=== PATIENT | female | born 1990 | race Caucasian/White ===

== ENCOUNTER 2016-10-08 22:00 | Emergency (ER) | payer BC ==
[2016-10-08 22:10] VITALS: TEMP 98.1
--- NOTE | 2016-10-08 22:14 | EDPHY ---
H & P Stated Complaint: rash to chin, throat "feels tight, swollen," l side facial pain HPI/ROS: HPI CHIEF COMPLAINT: Possible allergic reaction HISTORY OF PRESENT ILLNESS: This patient 25-year-old female, significant past medical history for seasonal allergies, asthma and migraines, she presents emergency room with sudden onset pain in her left side of her posterior jaw all and upper jaw around her teeth, also states that she felt like she was having trouble swallowing felt itching of her chin. She thought she may be having allergic reaction. She just moved here from [facility]. She is in a new apartment for 2 days. She denies any new medications or recent exposures. She does have a new environment. She decided come to the emergency room as she thought she may be having allergic reaction. Patient denies fever, chest pain or shortness of breath. No pleuritic pain. Additionally she felt that the inferior aspect of her chin was itching and she noticed a rash. Past Medical History: Asthma, migraines, seasonal allergies Past Surgical History: No recent surgery Social History: Just moved here to [place] from [facility] for her significant other's graduate school Family History: Noncontributory ROS REVIEW OF SYSTEMS: A comprehensive 10 point review of systems is otherwise negative aside from elements mentioned in the history of present illness. Exam Constitutional appears well nontoxic triage nursing summary reviewed, vital signs reviewed, awake/alert. Eyes normal conjunctivae and sclera, EOMI, PERRLA. HENT oropharynx: Uvula midline, no significant swelling, no petechiae in the mouth no signs of Ulises's, no gumline abscess, dentition all appears normal their feelings in her posterior molars on both sides lower aspect, but I do not appreciate signs of infection, moist mucus membranes, no epistaxis, neck supple / no meningismus, no raccoon eyes. Neck exam: No lymphadenopathy, no significant tenderness, no bruit. Underneath the chin there is an area small amount of petechiae. Respiratory clear to auscultation bilaterally, normal breath sounds, no respiratory distress, no wheezing. Cardiovascular rate normal, regular rhythm, no murmur, no edema, distal pulses normal. Gastrointestinal soft, non-tender, no rebound, no guarding, normal bowel sounds, no distension, no pulsatile mass. Genitourinary no CVA tenderness. Musculoskeletal no midline vertebral tenderness, full range of motion, no calf swelling, no tenderness of extremities, no meningismus, good pulses, neurovascularly intact. Skin small amount of petechiae underneath the chin, there is no signs of Ulises 's on exam pink, warm, & dry, no rash, skin atraumatic. Neurologic awake, alert and oriented x 3, AAOx3, moves all 4 extremities equally, motor intact, sensory intact, CN II-XII intact, normal cerebellar, normal vision, normal speech. Psychiatric normal mood/affect. Heme/Lymph/Immune no lymphadenopathy. Differential Diagnosis: Includes but is not limited to in a particular order allergic reaction, dental infection, vasculitis, pulpitis, zoster Medical Decision Making: Plan for this patient treat for an acute allergic reaction prednisone p.o. Pepcid p.o. and Benadryl p.o.. Re-evaluation: 2347: I did re-evaluate the patient at this time. She is resting comfortably she tells me that she feels much better after prednisone Pepcid and Benadryl. She denies any worsening swallowing, shortness of breath, or any further signs of allergic reaction. She is requesting go home. I will place her on prednisone Benadryl and Zantac for the next few days. She understands return precautions. Source: Patient - Personal History LMP (Females 10-55): Now Current Tetanus/Diphtheria Vaccine: Yes - Medical/Surgical History Hx Asthma: No Hx Chronic Respiratory Disease: No Hx Diabetes: No Hx Cardiac Disease: No Hx Renal Disease: No Hx Cirrhosis: No Hx Alcoholism: No Hx HIV/AIDS: No Hx Splenectomy or Spleen Trauma: No Other PMH: Asthma, chronic bronchitis, migraines - Social History Smoking Status: Never smoked Constitutional: Initial Vital Signs Temperature (C) 36.7 C 10/08/16 22:07 Heart Rate 100 10/08/16 22:07 Respiratory Rate 16 10/08/16 22:07 Blood Pressure 99/68 L 10/08/16 22:07 O2 Sat (%) 97 10/08/16 22:07 O2 Delivery Mode Room Air Allergies/Adverse Reactions: [place] And Derivatives [citrus] Allergy (Verified 10/08/16 22:10) Home Medications: Medication Instructions Recorded Fluticasone Hfa 110 Mcg [Flovent 1 puffs IH BID 10/08/16 110 MCG Hfa MDI (*)] Fluticasone Nasal [Flonase Nasal 1 sprays NASAL DAILY 10/08/16 [place] (RX)] Loratadine [Claritin 10 mg] 10 mg PO DAILY 10/08/16 Omeprazole [Prilosec 20 mg] 20 mg PO DAILY 10/08/16 Ranitidine HCl [Zantac] 150 mg PO DAILY #3 tablet 10/08/16 Topiramate 10/08/16 diphenhydrAMINE [Benadryl 25 MG 25 mg PO BID #6 tab 10/08/16 (*)] predniSONE 60 mg PO DAILY #9 tab 10/08/16 Medical Decision Making - Data Points Medications Given: Discontinued Medications Diphenhydramine HCl (Benadryl) 25 mg PO EDNOW ONE Stop: 10/08/16 22:22 Last Admin: 10/08/16 22:26 Dose: 25 mg Famotidine (Pepcid) 20 mg PO EDNOW ONE Stop: 10/08/16 22:22 Last Admin: 10/08/16 22:25 Dose: 20 mg Prednisone (Prednisone) 60 mg PO EDNOW ONE Stop: 10/08/16 22:22 Last Admin: 10/08/16 22:26 Dose: 60 mg Departure - Departure Disposition: Home, Routine, Self-Care Clinical Impression: Allergic reaction Qualifiers: Encounter type: initial encounter Qualified Code(s): T78.40XA - Allergy, unspecified, initial encounter Condition: Good Instructions: Allergies (ED) Additional Instructions: 1. Return to the emergency room if you have any worsening symptoms this includes trouble swelling, rash, or worsening of symptoms. Referrals: NONE *PRIMARY CARE P,. [Primary Care Provider] - As per Instructions Prescriptions: diphenhydrAMINE [Benadryl 25 MG (*)] 25 mg PO BID #6 tab predniSONE 60 mg PO DAILY #9 tab Ranitidine HCl [Zantac] 150 mg PO DAILY #3 tablet
[2016-10-08] MEDS ORDERED: predniSONE 20 MG TAB PO ONE (22:21)
[2016-10-08] MEDS ORDERED: FAMOTIDINE 20 MG TAB PO ONE (22:21)
[2016-10-08] MEDS ORDERED: diphenhydrAMINE 25 MG CAP PO ONE (22:21)
[2016-10-09 00:10] VITALS: BP 96/65; PULSE 80; RESP 14; O2SAT 98
== END 2016-10-09 00:07 | disposition home or self-care (01) ==
DX: T78.40XA Allergy, unspecified, initial encounter (principal); J45.909 Unspecified asthma, uncomplicated